=== PATIENT | female | born 1945 | race Caucasian/White ===

== ENCOUNTER → 2018-07-23 | Outpatient (CLI) | payer OTHER | END | disposition home or self-care (01) | LOC: SHCH 15:29 | PROVIDERS: ATTEND Internal Medicine Cardiovascular Disease | DX: I34.2 Nonrheumatic mitral (valve) stenosis (principal) | CPT/HCPCS: 93306 ==

== ENCOUNTER → 2018-08-27 | Outpatient (CLI) | payer OTHER | END | disposition home or self-care (01) | LOC: RAH 15:54 | PROVIDERS: ATTEND Family Medicine | DX: Z12.31 Encounter for screening mammogram for malignant neoplasm of breast (principal) | CPT/HCPCS: 77067 ==

== ENCOUNTER → 2019-10-22 | Outpatient (CLI) | payer OTHER | END | disposition home or self-care (01) | LOC: RAH 09:41 | PROVIDERS: ATTEND Family Medicine | DX: Z12.31 Encounter for screening mammogram for malignant neoplasm of breast (principal) | CPT/HCPCS: 77067 ==

== ENCOUNTER → 2019-10-28 | Outpatient (CLI) | payer OTHER | END | disposition home or self-care (01) | LOC: RAH 13:58 | PROVIDERS: ATTEND Family Medicine | DX: M17.0 Bilateral primary osteoarthritis of knee (principal); I10 Essential (primary) hypertension; M47.816 Spondylosis without myelopathy or radiculopathy, lumbar region ==

== ENCOUNTER → 2020-10-23 | Outpatient (CLI) | payer MEDICARE | END | disposition home or self-care (01) | LOC: SHCH 15:35 | PROVIDERS: ATTEND Internal Medicine Cardiovascular Disease | DX: R00.2 Palpitations (principal); I10 Essential (primary) hypertension | CPT/HCPCS: 93306; 93356 ==

== ENCOUNTER → 2020-10-28 | Outpatient (CLI) | payer MEDICARE | END | disposition home or self-care (01) | LOC: RAH 10:41 | PROVIDERS: ATTEND Family Medicine | DX: Z12.31 Encounter for screening mammogram for malignant neoplasm of breast (principal) | CPT/HCPCS: 77067 ==

== ENCOUNTER → 2021-12-27 | Outpatient (CLI) | payer MEDICARE | END | disposition home or self-care (01) | LOC: RAH 09:46 | PROVIDERS: ATTEND Family Medicine | DX: Z12.31 Encounter for screening mammogram for malignant neoplasm of breast (principal) | CPT/HCPCS: 77067 ==

== ENCOUNTER → 2023-01-04 | Outpatient (CLI) | payer MEDICARE | END | disposition home or self-care (01) | LOC: RAH 13:26 | PROVIDERS: ATTEND Family Medicine | DX: Z12.31 Encounter for screening mammogram for malignant neoplasm of breast (principal) | CPT/HCPCS: 77067 ==

== ENCOUNTER → 2024-01-16 | Outpatient (CLI) | payer MEDICARE | END | disposition home or self-care (01) | LOC: RAH 12:41 | PROVIDERS: ATTEND Family Medicine | DX: Z12.31 Encounter for screening mammogram for malignant neoplasm of breast (principal); R92.323 Mammographic fibroglandular density, bilateral breasts; R92.30 Dense breasts, unspecified | CPT/HCPCS: 77067 ==

== ENCOUNTER 2024-10-17 06:14 | Observation (INO) | payer MEDICARE ==
[2024-10-15 10:18] LABS: BASOPHILS # (AUTO) 0.03 K/uL (0.00-0.20); BASOPHILS % (AUTO) 0.4 % (0.0-5.0); EOSINOPHILS # (AUTO) 0.23 K/uL (0.00-0.70); EOSINOPHILS % (AUTO) 2.9 % (0.0-8.0); HEMATOCRIT 35.6 % (36-48); IMMATURE GRANULOCYTE ABSOLUTE 0.02 K/uL (0-1); LYMPHOCYTES # (AUTO) 1.6 K/uL (1.0-4.8); LYMPHOCYTES % (AUTO) 20.4 % (21.0-51.0); MEAN CORPUSCULAR HEMOGLOBIN 27.5 pg (27.0-33.0); MEAN CORPUSCULAR HGB CONC 31.5 g/dL (32.0-36.0); MEAN CORPUSCULAR VOLUME 87.3 fL (79-99); MONOCYTES # (AUTO) 0.5 K/uL (0.1-1.0); MONOCYTES % (AUTO) 6.4 % (3.0-13.0); NEUTROPHILS # (AUTO) 5.6 K/uL (1.8-7.7); NEUTROPHILS % (AUTO) 69.6 % (40.0-77.0); PLATELET COUNT (AUTO) 293 K/uL (130-400); RED BLOOD CELL COUNT(AUTO) 4.08 MIL/uL (4.00-5.50); RED CELL DISTRIBUTION WIDTH 14.1 % (11.0-15.5)
[2024-10-15 10:29] LABS: INR 0.97 (0.85-1.15); POTASSIUM 4.9 mmol/L (3.5-5.1); PROTHROMBIN TIME 10.3 SEC (9.6-11.6)
[2024-10-15 10:31] LABS: PARTIAL THROMBOPLASTIN TIME 30.1 SEC (26.3-35.5)
[2024-10-15 10:35] VITALS: BP_SYST 156; BP_SYST 200; BP_DIAS 74; BP_DIAS 90; PULSE 60; RESP 18; TEMP 97.4
--- NOTE | 2024-10-15 10:44 | EKG ---
[facility] Test Date: 2024-10-15 Test Time: 10:04:19 Pat Name: SMOOTH PISANO Department: [facility] Room: Gender: F Specimen Processor: [id number] : 1945 Requested By: HANH HERRERA Order Number: [id number] Reading MD: Armen Falcon Measurements Intervals [place] Rate: 57 P: 5 KS: 166 QRS: -33 QRSD: 90 T: 7 QT: 448 QTc: 438 Interpretive Statements Sinus rhythm Inferior infarct, old Consider anterior infarct No previous ECG available for comparison Electronically Signed On 10-15-2024 17:33:44 CDT by Armen Falcon Please click the below link to view image of tracing.
--- NOTE | 2024-10-16 13:46 | NUR ---
RE: EKG REPORTED EKG RESULTS TO DR WILLS, NO NEW ORDERS RECEIVED. (PATIENT HAS CARDIAC CLEARANCE)
[~2024-10-17] VITALS: Ht 147.3 cm; Wt 70.7 kg
[2024-10-17] VITALS (27 sets, daily range): BP systolic 104–148; BP diastolic 51–80; PULSE 51–74; RESP 13–20; TEMP 96.9–98.7; O2SAT 97–98
[~2024-10-17 06:14] MED LIST: DEXL60CA3 PO; DICY20TA3 PO; DIPH-1150 PO; FURO20TA4 PO; FURO40TA5 PO; LOSA100T59 PO; PRAV20TA59 PO; SPIR50TA5 PO
[2024-10-17] MEDS: LACTATED RINGERS 1000ML 1,000 ML IV ONE (06:55)
[2024-10-17] MEDS: ceFAZolin SODIUM 2 GM VIAL ONE (06:56)
[2024-10-17] MEDS ORDERED: NEOSTIGMINE METHYLSULFATE 1MG/ML IV ONE (07:13)
[2024-10-17] MEDS ORDERED: rocuRONium bROMide 10MG/1ML 5ML VL ONE (07:13)
[2024-10-17] MEDS ORDERED: ondanSETRON 4MG INJ ONE (07:13)
[2024-10-17] MEDS ORDERED: SUCCINYLCHOLINE CHLORIDE 20 MG/ML 10 ML VIAL ONE (07:13)
[2024-10-17] MEDS ORDERED: LIDOCAINE PF 100MG/5ML (2%) SYRINGE 5ML ONE (07:13)
[2024-10-17] MEDS ORDERED: dexaMETHasone SOD PHOSPHATE 10MG/ML 1ML VIAL ONE (07:13)
[2024-10-17] MEDS ORDERED: GLYCOPYRROLATE 0.2 MG/ML 5 ML VIAL ONE (07:13)
[2024-10-17] MEDS ORDERED: proPOFol 10 MG/ML 20ML VIAL IV ONE (07:13)
[2024-10-17] MEDS ORDERED: MIDAZOLAM HCL 1 MG/ML 2ML VIAL ONE (07:14)
[2024-10-17] MEDS ORDERED: FENTanyl CITRate PF 50 MCG/1 ML 2ML VIAL ONE ×3 (07:14→10:34)
[2024-10-17] MEDS ORDERED: ketaMINE 50MG/ML SYRINGE 50 MG/ML DISP.SYRIN ONE (07:22)
[2024-10-17] MEDS ORDERED: ALBUMIN (HUMAN) 5% 250 ML IV ONE (07:23)
[2024-10-17] MEDS ORDERED: BUPIvacaine/PF 0.25% 30ML VIAL IJ ONE (08:14)
[2024-10-17] MEDS: ceFAZolin SODIUM 2 GM VIAL IVPB ONE (08:20)
--- NOTE | 2024-10-17 10:49 | PN ---
GENERAL SURGERY PROGRESS NOTE Date/Time Patient Seen: [10/17/2024 11:00 a.m. ] Problem List: [ ] Interval History: [Postop day 0. Pain tolerable with p.r.n. medication. ] Physical Examination: ABD: [Incisions clean, dry and intact, Dermabond in place Vital Signs (last 8hr) Date Time Temp Pulse Resp B/P (MAP) Pulse Ox O2 Delivery O2 Flow Rate FiO2 10/17/24 06:35 97.0 59 15 134/70 99 Room Air Laboratory: [ ] Diagnostics / Radiology: [Copy/Paste Echos/Imaging Report here] Impression and Plan: [Plan is for discharge home in the next day or two as long as patient tolerating p.o., ambulatory and pain under control. Discussed with patient and family. They understand and agree. ] TERI HERRERA October 17, 2024 10:49
--- NOTE | 2024-10-17 10:58 | OP ---
Operative Note: DATE OF PROCEDURE: 10/17/24 SURGEON: HANH HERRERA MD STORE ADMINISTRATIVE ASSISTANT: Scout Herrera MD p.a. C ANESTHESIA: General and local ANESTHESIOLOGIST/AGRICULTURAL EXTENSION OFFICER: [facility] [place] PREOPERATIVE DIAGNOSIS: Recurrent hiatal hernia status post repair many years prior, symptomatic GERD and dyspepsia POSTOPERATIVE DIAGNOSIS: As above SYNOPSIS: Revision hiatal hernia repair with mesh reinforcement performed without complication PROCEDURE: 1. Robotic assisted revision paraesophageal hiatal hernia repair with mesh reinforcement 2. EGD 3. Extensive lysis of adhesions greater than 1 hour ESTIMATED BLOOD LOSS: Minimal, less than 40 cc INDICATIONS: As above DESCRIPTION OF PROCEDURE: After standard precautions and preparations were undertaken a Veress needle and optical trocar were used to enter the abdominal cavity. All other instruments were placed under direct vision. The robotic system was docked in the standard fashion. We began our dissection by attempting to opened pars flaccida identifying the right mariaa of the diaphragm. Because the patient had a previous hernia repair in the past there was significant scarring in the area of the hiatus due to previously placed stitch material. Over 1 hour was spent lysing adhesions between the undersurface of the left lateral aspect of the liver and the anterior surface of the patient's proximal stomach and gastric wrap. There were also significant adhesions between the crura and the distal esophagus/proximal stomach. Once the adhesions were safely lysed and the tissue was able to be thoroughly inspected we are able to identify the right and left crura down to the crossing fibers and the retroesophageal space. The patient's wrap appeared still somewhat intact but had been pulled up into the hiatus. When our dissection was complete the GE junction was resting below the hiatus and the wrap was resting in the peritoneal cavity. EGD was utilized throughout the case to verify appropriate anatomic landmarks incisura no injury to the distal esophagus or proximal stomach. We began our hiatal hernia repair by suturing the right and left crura back in reapproximation starting at the crossing fibers and working our way upwards towards the posterior esophageal wall. Care was taken not to over tighten. Due to the poor condition of the tissue from the previous hernia repair and the scarring associated with we decided to reinforced the closure with mesh. A [employer] Phasix ST mesh was cut in a horseshoe shape and placed as an overlay. It was sutured in place to prevent mesh migration. The patient had her fundoplication still intact so we decided not to rewrap or modify the current fundoplication but instead performed a gastropexy to pexy the fundoplication to the undersurface of the diaphragm and prevent migration of the fundoplication up into the chest. At the end of the case all instrument counts were verified as correct including needles and sponges. Retroflexed view demonstrated appropriate anatomy. The patient tolerated the procedure well and was prepared for extubation and transferred to PACU in stable condition. HANH HERRERA MD October 17, 2024 10:58
[2024-10-17] MEDS: ENOXAPARIN SODIUM 30 MG/0.3 ML SQ SCH (11:00)
[2024-10-17] MEDS ORDERED: HYDROcod/acetaMINOPHEN 7.5/325 MG 15 ML UDCUP PO PRN (11:00)
[2024-10-17] MEDS ORDERED: PROCHLORPERAZINE 10MG/2ML INJ IV PRN (11:00)
[2024-10-17] MEDS ORDERED: ondanSETRON 4MG INJ IVP PRN (11:00)
[2024-10-17] MEDS: FENTanyl CITRate PF 50 MCG/1 ML 2ML VIAL ONE (11:20)
[2024-10-17] MEDS: LACTATED RINGERS 1000ML 1,000 ML IV SCH (12:02)
[2024-10-17] MEDS: acetaMINOPHEN 100 ML ONE (12:03)
[2024-10-17] MEDS: hydroMORPHone 1 MG INJ IVP PRN (19:59)
[2024-10-18 04:00] VITALS: BP 105/50; PULSE 61; RESP 20; TEMP 98.4
[2024-10-18] MEDS: hydroMORPHone 0.5 MG SYG (0.5MG/0.5ML) IVP PRN (06:36)
[2024-10-18 08:00] VITALS: BP 111/52; PULSE 62; RESP 18; TEMP 97.6
[2024-10-18 08:25] VITALS: O2SAT 99
[2024-10-18] MEDS: FAMOTIDINE 20MG VIAL IV SCH (08:25)
--- NOTE | 2024-10-18 10:07 | NUR ---
DCP: HOME Pt currently lives with Madi Bob [phone] in their home. Pt denied any insecurities with food, residential, and/or utilities. Pt is a paraprofessional aide teacher. Pt does not have DME, home health, and provider services. Pt is able to complete ADLs independently. PCP is Dr. Yahaira Asencio and uses [facility] for any RX needs. At [place] pt will go home and sps will assist with transportation services. Addendum: 10/18/24 at 1011 by MARIE DURAND SS Amended: Links added.
[2024-10-18 12:00] VITALS: BP 142/75; PULSE 59; RESP 18; TEMP 97.5
--- NOTE | 2024-10-18 15:45 | DS ---
Discharge Summary HOSPITAL COURSE SUMMARY: [] PLANT TAXONOMIST(S): [] PROCEDURES: [] PROBLEM(S): [] DISCHARGE INSTRUCTIONS: [] Home Meds Reported Medications Diphenoxylate HCl/Atropine (Diphenoxylate-Atropine Tablet) 2.5 Mg-0.025 Mg Tablet, 1 EACH PO AD, TAB 10/15/24 Spironolactone (Spironolactone) 50 Mg Tablet, 1 TAB PO DAILY for 30 Days, #30 TAB 0 Refills 10/15/24 Losartan Potassium (Losartan Potassium) 100 Mg Tablet, 100 MG PO HS, TAB 10/15/24 Furosemide (Furosemide) 20 Mg Tablet, 1 TAB PO DAILY for 30 Days, #30 TAB 0 Refills 10/15/24 Dexlansoprazole (Dexilant) 60 Mg Cap., 1 CAP PO NOON for 30 Days, #30 CAP 0 Refills 10/15/24 Pravastatin Sodium (Pravastatin Sodium) 20 Mg Tablet, 1 TAB PO HS for 30 Days, #30 TAB 0 Refills 10/15/24 Dicyclomine HCl (Dicyclomine HCl) 20 Mg Tablet, 1 TAB PO TID for irritable bowel symptoms for 10 Days, #30 TAB 0 Refills 10/15/24 Discontinued Reported Medications Furosemide (Furosemide) 40 Mg Tablet, 40 MG PO HS, TAB 10/15/24 ROMEO FLORES DUMPSTER OPERATOR October 18, 2024 15:45
--- NOTE | 2024-10-18 16:50 | NUR ---
DISCHARGE PT PIV DC'D BY DANAE KRAFT PT VERBALIZED UNDERSTANDING OF DISCHARGE INSTRUCTIONS PT HAD NO FURTHER QUESTIONS AT TIME OF DISCHARGE PT GATHERED AND TOOK ALL BELONGINGS.
== END 2024-10-18 16:40 | disposition home or self-care (01) ==
LOC: DAH 06:14 → DAHIP 06:15 → INTOOBSV 06:15 → DAH 06:15 → 3AH 12:00
PROVIDERS: ADMIT Surgery; ATTEND Surgery
DX: K44.9 Diaphragmatic hernia without obstruction or gangrene (principal); K21.00 Gastro-esophageal reflux disease with esophagitis, without bleeding; I10 Essential (primary) hypertension; E78.5 Hyperlipidemia, unspecified; Z90.710 Acquired absence of both cervix and uterus; Z79.899 Other long term (current) drug therapy
CPT/HCPCS: 80048; 85025; 85610; 85730; 86850; 86900; 86901; 36415; 93005; 43282; 96374; 96376; 96372; 96375; 97161; 97116; A6260; G0378 ×29; G0379; A4663; J7120 ×2; A4215 ×2; P9045; J3010 ×4; J1171 ×2; J1100; J0330; J0665 ×2; J3490 ×4; J2003; J2250; J2704; J2405; J2710; J0690 ×2; A4930 ×3; C1781; A4223 ×2; A4222; A4221; A4216; A4600; J1650 ×2; 43235

== ENCOUNTER → 2025-01-21 | Outpatient (CLI) | payer MEDICARE ==
[~2025-01-21] MED LIST changes: -FURO40TA5 PO
--- NOTE | 2025-01-23 11:02 | HMCIMG ---
DIGITAL BILATERAL SCREENING MAMMOGRAM Technique: The digital mammographic examination of both breasts in craniocaudal and mediolateral oblique views along with CAD was obtained. History: This is a 79 years year-old female 2, para2 Ab0. Patient has no family history of breast cancer. Patient has no complaint Reference:Prior mammogram from 01/16/2024, 01/04/2023, 12/27/2021, 10/28/2020, 10/22/2019, 08/27/2018 and 04/12/2017 are available.. Breast composition: Breast composition B: There are scattered areas of fibroglandular density. Finding: The digital mammographic examination of both breasts in craniocaudal and mediolateral oblique view along with CAD demonstrates both breasts to have mostly involutional fatty changes with some residual fibroglandular stromal elements.. There is no evidence of any dendritic mass, cluster microcalcification or architectural distortion. The retromammary fat appears to be normal. IMPRESSION: Unchanged from prior mammography. NO RADIOGRAPHIC EVIDENCE OF MALIGNANT CHANGES. WE WOULD RECOMMEND ANNUAL FOLLOW UP WITH TOMOSYNTHESIS UNLESS OTHERWISE CLINICALLY INDICATED. FINAL ASSESSMENT: ACR: BI-RAD - 1. Negative: Nothing to comment upon. Management: Routine mammography screening. Likelihood of Cancer: Essentially 0% likelihood of malignancy. NOTE: IF A WORK-UP OF THIS PATIENT LEADS TO A BIOPSY, PLEASE FORWARD A COPY OF THE PATHOLOGY REPORT TO OUR OFFICE REQUIRED BY [facility] E[employer]ECT[employer] FEBRUARY 19, 1994. A NEGATIVE MAMMOGRAM SHOULD NOT PRECLUDE BIOPSY OF A CLINICALLY PALPABLE SUSPICIOUS MASS, 10% OF BREAST CANCERS ARE MAMMOGRAPHICALLY OCCULT. THIS MAMMOGRAPHY FACILITY IS FULLY ACCREDITED BY THE FOOD AND DRUG ADMINISTRATION (FDA). THANK YOU FOR THIS REFERRAL.
== END | disposition home or self-care (01) ==
LOC: RAH 14:20
PROVIDERS: ATTEND Family Medicine
DX: Z12.31 Encounter for screening mammogram for malignant neoplasm of breast (principal)
CPT/HCPCS: 77067